=== PATIENT | female | born 1970 | race Caucasian/White ===

== ENCOUNTER 2019-08-21 08:37 | Day surgery (SDC) | payer BC ==
[2019-08-19 15:52] VITALS: BMI 33.3
[~2019-08-21 08:37] MED LIST: LACTATED RINGERS 1,000 ML IV SCH
[2019-08-21 08:55] VITALS: RESP 16; TEMP 98.6
[2019-08-21] MEDS ORDERED: LIDOCAINE 1% 20 ML VIAL (10MG/ML) FOR IV START INTRADERMA ONE (08:59)
[2019-08-21] MEDS ORDERED: PROPOFOL 10 MG/ML 20 ML VIAL IV ONE (09:01)
[2019-08-21] MEDS ORDERED: GLUCAGON 1 MG/ML VIAL ONE (09:01)
--- NOTE | 2019-08-21 09:05 | P.GSHP ---
History of Present Illness H&P Date: 08/21/19 Chief Complaint: family history of colon cancer, screening this a 49-year-old female who presents today for colonoscopy. Patient's family history of colon cancer.patient presents today for screening colonoscopy. Her last colonoscopy was over 10 years ago. Past Medical History Past Medical History: No Reported History Additional Past Medical History / Comment(s): abdominal pain,hypoglycemia History of Any Multi-Drug Resistant Organisms: None Reported Past Surgical History: Cholecystectomy, Tubal Ligation, Uterine Ablation Past Anesthesia/Blood Transfusion Reactions: No Reported Reaction Smoking Status: Current every day smoker - Past Family History Mother Family Medical History: No Reported History Medications and Allergies Home Medications Medication Instructions Recorded Confirmed Type Naproxen Sodium [Aleve] 220 mg PO BID PRN 08/19/19 08/21/19 History Sertraline [Zoloft] 50 mg PO QAM 08/19/19 08/19/19 History Allergies Allergy/AdvReac Type Severity Reaction Status Date / Time herrera Allergy convulsions Verified 08/19/19 15:44 shellfish derived [Shellfish] Allergy Abdominal Verified 08/19/19 15:44 Pain,N/V amoxicillin AdvReac Rash/Hives Verified 08/21/19 08:46 Surgical - Exam Vital Signs Temp Pulse Resp BP Pulse Ox 98.6 F 69 16 131/74 97 08/21/19 08:49 08/21/19 08:49 08/21/19 08:49 08/21/19 08:49 08/21/19 08:49 - General well developed - Eyes PERRL - ENT normal pinna - Neck no masses - Respiratory normal expansion - Cardiovascular Rhythm: regular - Abdomen Abdomen: soft, non tender Assessment and Plan Assessment: family history: Cancer We'll perform screening colonoscopy.
[2019-08-21 09:37] VITALS: BP 159/81; PULSE 65
--- NOTE | 2019-08-21 10:05 | P.OP ---
Date of Procedure: 08/21/19 Preoperative Diagnosis: screening colonoscopy Postoperative Diagnosis: normal colonoscopy Procedure(s) Performed: colonoscopy Anesthesia: MAC Description of Procedure: Date of Procedure: 08/21/19 Preoperative Diagnosis: screening colonoscopy Family history of colonic Cancer Postoperative Diagnosis: normal colon Procedure(s) Performed: colonoscopy Anesthesia: MAC Surgeon: Andrews Manzo Pathology: none sent Condition: stable Disposition: PACU Description of Procedure: PROCEDURE: The patient was placed on the endoscopy table in the lateral pos ition. Digital rectal examination was performed which revealed no abnormalities. es. Flexible colonoscope was then placed in the patient's anus and passed throughout the entire colon. The ileocecal valve was visualized. The cecum, ascending, transverse, descending and sigmoid colon were normal. The rectum was normal as well. There were no masses, polyps or diverticula noted in the entire colon. SUMMARY OF FINDINGS: Normal colonoscopy. Additional CC's: Treva Colon
== END 2019-08-21 10:30 | disposition home or self-care (01) ==
LOC: ORWHC2ENDO 08:37
PROVIDERS: ATTEND Surgery
DX: Z12.11 Encounter for screening for malignant neoplasm of colon (principal); Z80.0 Family history of malignant neoplasm of digestive organs; F17.200 Nicotine dependence, unspecified, uncomplicated; Z90.49 Acquired absence of other specified parts of digestive tract; M25.50 Pain in unspecified joint; N95.9 Unspecified menopausal and perimenopausal disorder; Z86.39 Personal history of other endocrine, nutritional and metabolic disease; G43.709 Chronic migraine without aura, not intractable, without status migrainosus; E16.2 Hypoglycemia, unspecified; F39 Unspecified mood [affective] disorder; Z98.51 Tubal ligation status; Z79.899 Other long term (current) drug therapy; Z88.0 Allergy status to penicillin; Z91.013 Allergy to seafood; Z91.018 Allergy to other foods
CPT/HCPCS: 81025; J1610; J2704; G0105; 45378

== ENCOUNTER → 2019-09-18 | Outpatient (CLI) | payer BC ==
--- NOTE | 2019-09-21 14:14 | MM ---
Reason for exam: screening (asymptomatic). Last mammogram was performed 5 years and 3 months ago. History: Patient is postmenopausal. Physical Findings: A clinical breast exam by your physician is recommended on an annual basis and results should be correlated with mammographic findings. MG Screening Mammo w CAD Bilateral CC and MLO view(s) were taken. Prior study comparison: June 28, 2014, bilateral MG screening mammo w CAD. January 20, 2010, bilateral digital screening mammogram. There are scattered fibroglandular densities. There is no discrete abnormality. ASSESSMENT: Incomplete: need additional imaging evaluation, BI-RAD 0 RECOMMENDATION: Ultrasound of the right breast. (axilla palpable lump) [facility] will attempt to contact patient to return for ultrasound.
== END | disposition home or self-care (01) ==
LOC: RADMAMWWP 16:39
PROVIDERS: ATTEND Family Medicine
DX: Z12.31 Encounter for screening mammogram for malignant neoplasm of breast (principal)
CPT/HCPCS: 77067

== ENCOUNTER → 2019-09-28 | Outpatient (CLI) | payer BC ==
--- NOTE | 2019-09-28 10:14 | USB ---
Reason for exam: additional evaluation requested from abnormal screening. History: Patient is postmenopausal. Physical Findings: Nurse did not find any significant physical abnormalities on exam. US Breast Workup Limited RT Right limited breast ultrasound including focal area of concern, retroareolar and axilla demonstrates no cystic or solid lesion seen. No suspicious sonographic finding. These results were verbally communicated with the patient and result sheet given to the patient on 09/28/19. ASSESSMENT: Negative, BI-RAD 1 RECOMMENDATION: Return to routine screening mammogram schedule for both breasts.
== END | disposition home or self-care (01) ==
LOC: RADUSWWP 09:39
PROVIDERS: ATTEND Family Medicine
DX: R92.8 Other abnormal and inconclusive findings on diagnostic imaging of breast (principal)

== ENCOUNTER 2020-06-10 01:41 | Emergency (ER) | payer BC, OTHER ==
[2020-06-10 01:49] VITALS: BP 130/72; PULSE 86; RESP 20; TEMP 98.1
--- NOTE | 2020-06-10 02:39 | XR ---
EXAMINATION TYPE: XR shoulder complete RT DATE OF EXAM: 06/10/2020 COMPARISON: NONE HISTORY: Pain TECHNIQUE: 3 views FINDINGS: I see no fracture nor dislocation. Joint spaces are fairly normal. There is calcification a t the greater tuberosity of the humerus. IMPRESSION: Calcific tendinitis. No fracture seen.
--- NOTE | 2020-06-10 02:52 | ED ---
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 Patient presents the ER today for burning pain in her right shoulder. Patient reports that approximately 2 weeks ago she had an odd twist to grab a broom and pulled muscles in her back. She reports that since that time she's had some burning pain in her right shoulder. She states that she is moving her arms constantly all day at work up and down and this is worse in the pain. She states that tonight she couldn't get any sleep which from to come the ER for further evaluation. She has no history of significant injury to this arm. She states she has seen orthopedics in the past but she can't recall what for. She denies any associated fevers, chills, nausea vomiting or any other acute complaints. - Related Data Home Medications Medication Instructions Recorded Confirmed Naproxen Sodium [Aleve] 220 mg PO BID PRN 08/19/19 08/21/19 Sertraline [Zoloft] 50 mg PO QAM 08/19/19 08/19/19 Previous Rx's Medication Instructions Recorded Ibuprofen [Motrin] 600 mg PO Q8HR PRN #30 tab 06/10/20 predniSONE [Deltasone] 40 mg PO DAILY 5 Days #10 tab 06/10/20 Allergies Allergy/AdvReac Type Severity Reaction Status Date / Time herrera Allergy convulsions Verified 06/10/20 01:49 shellfish derived [Shellfish] Allergy Abdominal Verified 06/10/20 01:49 Pain,N/V amoxicillin AdvReac Rash/Hives Verified 06/10/20 01:49 Review of Systems ROS Statement: Those systems with pertinent positive or pertinent negative responses have been documented in the HPI. ROS Other: All systems not noted in ROS Statement are negative. Past Medical History Past Medical History: No Reported History Additional Past Medical History / Comment(s): abdominal pain,hypoglycemia History of Any Multi-Drug Resistant Organisms: None Reported Past Surgical History: Cholecystectomy, Tubal Ligation, Uterine Ablation Past Anesthesia/Blood Transfusion Reactions: No Reported Reaction Past Psychological History: Depression Smoking Status: Current every day smoker Past Alcohol Use History: Occasional Past Drug Use History: None Reported - Past Family History Mother Family Medical History: No Reported History General Exam - General Exam Comments Initial Comments: Physical Exam GENERAL: Patient is well-developed and well-nourished. Patient is nontoxic and well-hydrated and is in no distress. HENT: Normocephalic, Atraumatic. EYES: PERRL, EOMI PULMONARY: Unlabored respirations. CARDIOVASCULAR: RRR Warm and well perfused extremities ABDOMEN: Non-distended SKIN: No rashes or bruising : Deferred NEUROLOGIC: Alert and oriented Normal speech Normal gait MUSCULOSKELETAL: Moving all extremities with no injury Right shoulder is not warm to the touch, she does have some discomfort with active range of motion PSYCHIATRIC: No SI/HI Limitations: no limitations Course Vital Signs 06/10/20 01:47 Temperature 98.1 F Pulse Rate 86 Respiratory 20 Rate Blood Pressure 130/72 O2 Sat by Pulse 96 Oximetry Medical Decision Making - Medical Decision Making Patient was seen and evaluated history is obtained from patient Patient has repetitive use injury to her right shoulder x-ray confirms a calcific tendinitis Patient will be treated with anti-inflammatories and pain medications discharged home with steroids for tendinitis and referred to orthopedics for outpatient follow-up Disposition Clinical Impression: Tendonitis Disposition: HOME SELF-CARE Condition: Stable Instructions (If sedation given, give patient instructions): Calcific Tendinitis (ED) Prescriptions: predniSONE [Deltasone] 40 mg PO DAILY 5 Days #10 tab Ibuprofen [Motrin] 600 mg PO Q8HR PRN #30 tab PRN Reason: Pain Is patient prescribed a controlled substance at d/c from ED?: No Referrals: Kandi Bone DO [Primary Care Provider] - 1-2 days Yong Washburn DO [Doctor of Osteopathic Medicine] - 1-2 days
[2020-06-10] MEDS ORDERED: KETOROLAC 15 MG/ML 1 ML VIAL IM STA (02:56)
[2020-06-10] MEDS ORDERED: MORPHINE SULFATE 4 MG/ML SYRINGE IM STA (02:56)
== END 2020-06-10 03:14 | disposition home or self-care (01) ==
LOC: EC 01:41
DX: M75.31 Calcific tendinitis of right shoulder (principal); F32.9 Major depressive disorder, single episode, unspecified; F17.200 Nicotine dependence, unspecified, uncomplicated; Z79.899 Other long term (current) drug therapy; Z88.0 Allergy status to penicillin; Z91.013 Allergy to seafood; Z91.018 Allergy to other foods; X50.0XXA Overexertion from strenuous movement or load, initial encounter
CPT/HCPCS: 73030; 99283; 96372 ×2; J2270; J1885